=== PATIENT | female | born 1940 | race Caucasian/White ===

== ENCOUNTER → 2017-09-28 | Outpatient (CLI) | payer OTHER ==
[~2017-09-28] MED LIST: ACCUNEB SO1.25 MG/1 INH; ACETAMINOPHEN-1 EAC1 PO; ADVAIR HFA 230M12 GM INH; CELEXA10 MG PO; KEFLEX500 MG PO; LIPITOR 20 MG T20 M1 PO; LOPRESSOR25 PO; SPIRIVA INH; ZYRTEC10 MG PO
== END ==
LOC: M.RAD 13:39
DX: J15.8 Pneumonia due to other specified bacteria (principal); J44.1 Chronic obstructive pulmonary disease with (acute) exacerbation; I70.0 Atherosclerosis of aorta

== ENCOUNTER → 2019-12-01 | Outpatient (CLI) | payer OTHER ==
[2019-12-01 08:19] LABS: ALBUMIN 3.6 g/dL (3.4-5.0); CALCIUM 9.4 mg/dL (8.5-10.1); TOTAL BILIRUBIN 0.4 mg/dL (<0.1-1.0); TOTAL PROTEIN 7.1 g/dL (6.4-8.2)
== END ==
LOC: M.MRI 11-28 11:30 → M.LAB 07:30 → M.MRI 08:30
PROVIDERS: ATTEND Internal Medicine Hematology & Oncology
DX: C34.90 Malignant neoplasm of unspecified part of unspecified bronchus or lung (principal)